=== PATIENT | female | born 1960 | race Caucasian/White ===

== ENCOUNTER → 2024-01-06 15:23 | Outpatient (REF) | payer MEDICARE, OTHER, SELFPAY | LOC: WDC 15:23 | PROVIDERS: ATTENDING PHYSICIAN Obstetrics & Gynecology; FAMILY PHYSICIAN Family Medicine | DX: Z12.31 Encounter for screening mammogram for malignant neoplasm of breast (principal) | CPT/HCPCS: 77063; 77067 ==

== ENCOUNTER → 2025-01-06 14:48 | Outpatient (REF) | payer OTHER, SELFPAY | LOC: WDC 14:48 | PROVIDERS: ATTENDING PHYSICIAN Obstetrics & Gynecology; FAMILY PHYSICIAN Family Medicine | DX: Z12.31 Encounter for screening mammogram for malignant neoplasm of breast (principal) | CPT/HCPCS: 77063; 77067 ==

== ENCOUNTER 2025-04-12 22:33 | Emergency (ER) | payer OTHER, SELFPAY ==
[2025-04-12 22:34] VITALS: BP 194/109
[2025-04-12 23:07] LABS: % Basophils 0.8 % (0-2); % Immature Granulocytes 0.5 % (0-0.5); % Lymphocytes 24.6 % (20.5-51.1); % Monocytes 8.3 % (1.7-9.3); % Neutrophils 63.8 % (42.2-75.2); Absolute Basophils 0.1 10^3/uL (0-0.2); Absolute Eosinophils 0.2 10^3/uL (0-0.7); Absolute Lymphocytes 2.1 10^3/uL (1.2-3.4); Absolute Monocytes 0.7 10^3/uL (0.1-0.6); Absolute Neutrophils 5.6 10^3/uL (1.4-6.5); Hematocrit 43.1 % (37.0-47.0); Mean Corp Hgb Conc. 34.8 g/dL (33.0-37.0); Mean Corpuscular Hgb 31.4 pg (27.0-31.0); Mean Corpuscular Volume 90.2 fL (81.0-99.0); Mean Platelet Volume 9.8 fL (7.4-10.4); Nucleated Red Blood Cells % 0 %; Platelet Count 229 10^3/uL (130-400); Red Blood Cell Count 4.78 10^6/uL (4.20-5.40); Red Cell Dist. Width 12.9 % (11.5-14.5); White Blood Cell Count 8.7 10^3/uL (4.8-10.8)
[2025-04-12 23:29] LABS: ALT (SGPT) 25 U/L (0-35); AST (SGOT) 22 U/L (14-36); Albumin 4.6 g/dl (3.5-5.0); Alkaline Phosphatase 114 U/L (38-126); Blood Urea Nitrogen 18 mg/dl (7-17); Calcium 11.4 mg/dl (8.4-10.2); Carbon Dioxide 24 mmol/L (22-30); Chloride 107 mmol/L (98-107); Glucose 139 mg/dl (70-99); Potassium 3.8 mmol/L (3.5-5.1); Sodium 139 mmol/L (135-145); Total Bilirubin 0.8 mg/dl (0.2-1.3); Total Protein 7.7 g/dl (6.3-8.2); eGFR > 60.00
[2025-04-13 00:34] VITALS: BP 154/79
[2025-04-13 00:36] VITALS: BP 154/79
[2025-04-13 00:37] VITALS: BMI 42.7
[2025-04-13 01:00] VITALS: BP 149/78
--- NOTE | 2025-04-13 01:21 | ED.GENMED ---
History of Present Illness
General
Chief Complaint: Dizziness
Source: patient
Exam Limitations: none
Time Seen by Provider: 04/13/25 01:21
Nursing documentation reviewed up to this point in time: agreed with
History of Present Illness
History of Present Illness:
This is a 65-year-old female with past medical history of PE on Xarelto, hypertension, hyperlipidemia, diabetes, who presents emergency department today with concerns of dizziness. Patient reports that she was going to the bathroom and when she
stood up from the toilet, she got a 30 second episode of a room spinning sensation and dizziness. Paitient reports that she will occasionally feel a bit 'woozy' when abruptly looking to her right. She not lose consciousness. She not fall or hit her
head. Patient reports that she went to go sit down again and felt better. Patient reports that she was asymptomatic for multiple hours when she went to go get out of her car earlier today and was helping a neighbor move something when she got the 30
ely second episode of the room spinning sensation again. Patient states that this has been ongoing on and off for a few months now but feels like the past day it got worse. Currently, she is asymptomatic. She denies any headaches. She denies any
nausea or vomiting. She denies any palpitations. She denies any recent chiropractic manipulations. She denies any head or neck trauma.
Past History
Past History
ED Past Medical History: HTN, Hypercholesterolemia and Other (Allergic rhinitis, obesity, hyperparathyroid, pulmonary embolism)
ED Past Surgical History: Appendectomy, Cholecystectomy, Gynecological (Hysterectomy) and Other (Breast lumpectomy)
Social History
Tobacco: Non-smoker
Alcohol: None
Drug: None
Personal: Other (Noncontributory)
Living: alone
Employment: Employed
Family History
Family History: Hypertension
Review of Systems
Review of Systems
All Other Systems: ROS reviewed and negative except as documented in HPI and ROS
Phy Exam
Physical Exam
Physical Exam:
General: Patient is well appearing and in no acute distress; non-toxic
Skin: Warm and dry, no rashes or lesions
Head: Normocephalic, atraumatic
Eyes: Sclera non-icteric. EOMs intact.
Cardiac: Regular rate and rhythm, no murmurs
Peripheral Vascular: No lower extremity swelling or edema
Pulm: Normal respiratory effort, no wheezes, rales, or rhonchi
Neuro: CN II-XII intact, no focal neurologic deficits. Normal steady gait, patient walking comfortably with no symptoms. Normal finger to nose, heel to angeles testing. Negative Romberg.
Psychiatric: Appropriate mood and affect.
Course
Orders/Labs/Results
Orders:
Orders
04/12/25 22:41
Electrocardiogram (*1) Urgent
Reason for Study: Vertigo / Dizzy
EKG- Treatment ONCE
04/12/25 22:58
Complete Blood Count/With Diff Urgent
Comprehensive Metabolic Panel Urgent
04/13/25 02:04
CT Head W/o Iv Contrast Urgent
Comment:
Reason For Exam: transient dizziness, eliquis
0.9% Sodium Chloride 500 ml [Nss] 500 ml IV BOLUS
04/13/25 03:40
Orthostatic VS- Treatment ONCE
Meclizine [Antivert] 25 mg PO NOW STA
Abnormal Lab Results
04/12/25
22:58
MCH 31.4 H pg
(27.0-31.0)
Absolute Monos (auto) 0.7 H 10^3/uL
(0.1-0.6)
BUN 18 H mg/dl
(7-17)
Glucose 139 H mg/dl
(70-99)
Calcium 11.4 H mg/dl
(8.4-10.2)
04/12/25 22:58
04/12/25 22:58
Vital Signs
Initial and Last Documented VS:
Initial Vital Signs
Temp Pulse Resp BP Pulse Ox
97.6 F 81 20 194/109 96
04/12/25 22:34 04/12/25 22:34 04/12/25 22:34 04/12/25 22:34 04/12/25 22:34
Last Documented Vital Signs
Temp Pulse Resp BP Pulse Ox
97.6 F 78 18 178/83 99
04/12/25 22:34 04/13/25 04:46 04/13/25 04:46 04/13/25 04:46 04/13/25 04:46
MDM/Problems Addressed
Differential Diagnosis Includes:
ddx include vestibular neuritis, vestibular migraine, BPPV, orthostatic hypotension, posterior CVA, dysrhythmia/cardiac insuffiency
MDM/Problems Addressed:
This is a 65-year-old female with past medical history of PE on Xarelto, hypertension, hyperlipidemia, diabetes, who presents emergency department today with concerns of dizziness. She had this problem for multiple months on and off but feels like
it has gotten worse the past day. She had 2 episodes of dizziness/room spinning sensation lasting 30 seconds. Currently she is asymptomatic---she did have one additional episode in the emergency department when she was sitting up from a supine
position from CT scan. She denies dysarthria, dysphagia, double vision, headaches neck pain. She denies CP, sOB. Her neurologic exam is completely benign---no focal deficits, normal gait, normal finger to nose, heel to angeles. ECG shows no
dysrhythmia. Blood work unremarkable. Not orthostatic. Patient given IV fluids. Patient given antivert. Did replicate abrupt position changes after patient was given anti-vert and she did not become symptomatic again. Suspect component of BPPV.
Prescription for antivert given. Patient has a follow up appointment coming up with her iron piler and pcp. Did stress to patient to let them know she has been having these symptoms. Patient expressed understanding.All questions answered.
Patient stable for discharge.
*Critical Care Note
Total Time (30-74mins, 75-104mins- exclusive of procedures): Not Applicable
ED Attending Note
-
Portions of this chart may have been created with voice recognition software.� Occasional wrong word or��sound alike� substitutions may have occurred due to the inherent limitations of voice recognition software.
Discharge Plan
Departure
Patient Disposition: Home (Routine Discharge)
Date of Disposition: 04/13/25
Time of Disposition: 04:20
Patient with high blood pressure during this ER visit?: Yes
Condition: Good
Discharge Problem:
Dizziness
Instructions: Vertigo (a Type of Dizziness) (DC), BLOOD PRESSURE
Prescriptions:
New
meclizine 25 mg tablet
25 mg PO TID PRN (Reason: dizziness) Qty: 10 0RF
No Action
cetirizine 10 MG tablet
10 mg PO QPM Qty: 0 0RF
simvastatin 20 MG tablet
20 mg PO HS
beclomethasone dipropionate [Qvar] 8.7 GM aerosol
2 puff IH PRN PRN (Reason: SOB/respiratory irritation )
albuterol sulfate 1 PUFF HFA aerosol inhaler
2 puff inhalation R Q4HPRN PRN (Reason: SOB/respiratory irritation )
fluticasone propionate 1 SPRAY spray,suspension
2 spray intranasal PRN PRN (Reason: congestion)
rivaroxaban [Xarelto] 20 MG tablet
20 mg PO QPM Qty: 30 0RF
Tylenol :
1 dose PO PRN PRN (Reason: pain)
cholecalciferol (vitamin D3) 2,000 UNITS tablet
3,000 units PO DAILY
omeprazole 20 MG tablet,delayed release (DR/EC)
20 mg PO DAILY Qty: 30 0RF
losartan 50 MG tablet
50 mg PO DAILY
metformin 500 MG tablet
500 mg PO BID
glimepiride 4 MG tablet
4 mg PO DAILY
Patient Comments:
TAKE WITH BREAKFAST
hydrochlorothiazide 12.5 MG capsule
12.5 mg PO DAILY
zinc 50 MG tablet
50 mg PO DAILY
Referrals:
Neville Pitts MD [Family Provider] -
Activity Restrictions/Additional Instructions:
Follow-up with your iron piler and your store coordinator. Please call your primary care provider to bump up your follow-up appointment please say that you are seen in the emergency department.
Your CT scan of the head did not show any evidence of acute bleeding or any other abnormalities.
Your EKG showed normal sinus rhythm with no abnormal heart rhythms..
PLEASE RETURN TO THE EMERGENCY DEPARTMENT SHOULD YOU DEVELOP CHEST PAIN, SHORTNESS OF BREATH, WEAKNESS IN ONE-SIDED BODY VERSUS OTHER, DIFFICULTY SPEAKING, CONFUSION, LETHARGY, DIFFICULTY WALKING, TROUBLE SWALLOWING, DIFFICULTY SPEAKING, PERSISTENT
DIZZINESS, INTRACTABLE NAUSEA OR VOMITING, HEADACHES, NECK PAIN, OR ANY OTHER SIGNS OR SYMPTOMS WORRISOME TO YOU.
Interventions
Interventions:
*Risk Screen - Suicide Last Done: 04/12/25 22:40
*General Assessment Last Done: 04/12/25 22:40
*Neglect/Abuse Screening Last Done: 04/12/25 22:40
*ED- Fall Risk Assessment Last Done: 04/13/25 04:51
*ED COVID-19 Vaccine History Last Done: 04/12/25 22:40
*Nursing Disposition Last Done: 04/13/25 04:51
ED- Neurological Assessment Last Done: 04/13/25 00:50
ED- Cardiac Assessment Last Done: 04/13/25 05:26
ED Swallowing Screen Last Done: 04/13/25 02:43
Discharge Date and Time
Discharge Date/Time: 04/13/25 05:26
Print Language: LITHUANIAN
[2025-04-13 02:00] VITALS: BP 146/87
[2025-04-13] MEDS: NSS 500 IV (02:41)
[2025-04-13 03:40] VITALS: BP 157/63; BP 165/80; BP 170/81; PULSE 70; PULSE 73; PULSE 74
[2025-04-13] MEDS: ANTIVERT 25 MG PO (03:48)
[2025-04-13 04:46] VITALS: BP 178/83
== END 2025-04-13 05:26 | disposition home or self-care (01) ==
LOC: EMR 22:33
PROVIDERS: EMERGENCY PHYSICIAN Student in an Organized Health Care Education/Training Program; FAMILY PHYSICIAN Family Medicine
DX: R42 Dizziness and giddiness (principal); I10 Essential (primary) hypertension; E78.00 Pure hypercholesterolemia, unspecified; E66.9 Obesity, unspecified; E11.9 Type 2 diabetes mellitus without complications; Z79.01 Long term (current) use of anticoagulants; Z82.49 Family history of ischemic heart disease and other diseases of the circulatory system; Z86.711 Personal history of pulmonary embolism; Z90.49 Acquired absence of other specified parts of digestive tract; Z90.710 Acquired absence of both cervix and uterus
CPT/HCPCS: 99283; 96360; 70450; 80053; 85025; 93005

== ENCOUNTER 2025-05-27 14:25 | Emergency (ER) | payer OTHER, SELFPAY ==
[2025-05-27 14:26] VITALS: BP 158/82
--- NOTE | 2025-05-27 15:50 | ED.GENMED ---
History of Present Illness
General
Chief Complaint: Skin Surface Trauma
Time Seen by Provider: 05/27/25 15:05
History of Present Illness
History of Present Illness:
65-year-old female with history of varicose veins on Xarelto presenting to the emergency department with bleeding from the left lower extremity. Just prior to arrival she walked out of someone's house and noticed that her leg was bleeding. The
wound was bandaged and she was brought in by the medics. Denies any significant pain to the area. Reports that this happened to her in the past denies fever, numbness or tingling to the extremity, weakness, or additional acute medical complaints
Past History
Past History
ED Past Medical History: HTN, Hypercholesterolemia and Other (Allergic rhinitis, obesity, hyperparathyroid, pulmonary embolism)
ED Past Surgical History: Appendectomy, Cholecystectomy, Gynecological (Hysterectomy) and Other (Breast lumpectomy)
Social History
Tobacco: Non-smoker
Alcohol: None
Drug: None
Personal: Other (Noncontributory)
Living: alone
Employment: Employed
Family History
Family History: Hypertension
Phy Exam
Physical Exam
Physical Exam:
General: Well-appearing, no clinical signs of dehydration, nontoxic and in no acute distress
HEENT: protecting airway
Neck: appears supple
CV: Normal heart rate
Resp: No accessory muscle use, no increased work of breathing
Abd: no distension
Extremities: No deformities, no swelling. Small superficial nonbleeding wound to the left angeles at the medial aspect. No erythema
Neuro: alert, no focal neurologic deficit
: deferred
Rectal: deferred
Psych: Normal affect
Skin: Intact
Course
Vital Signs
Initial and Last Documented VS:
Initial Vital Signs
Temp Pulse Resp BP Pulse Ox
98.8 F 85 16 158/82 96
05/27/25 14:26 05/27/25 14:26 05/27/25 14:26 05/27/25 14:26 05/27/25 14:26
Last Documented Vital Signs
Temp Pulse Resp BP Pulse Ox
98.8 F 85 16 158/82 96
05/27/25 14:26 05/27/25 14:26 05/27/25 14:26 05/27/25 14:26 05/27/25 15:50
MDM/Problems Addressed
MDM/Problems Addressed:
65-year-old female with history of varicose veins on Xarelto presenting for bleeding wound to the left lower angeles. Vital signs are significant for mild hypertension.
On exam patient is resting comfortably, no acute distress. Wound undressed and examined. No active bleeding. No signs of infection. Area of concern was appropriately bandaged and cleaned. Compressive bandage applied. Feel stable for discharge.
No other additional concerns, hemodynamic stable. Return precautions discussed and patient verbalized understanding
*Pulse Oximetry
SaO2: 96
Oxygen Mode of Delivery: Room air
Patient hypoxic: no
*Critical Care Note
Total Time (30-74mins, 75-104mins- exclusive of procedures): Not Applicable
ED Attending Note
-
Portions of this chart may have been created with voice recognition software.� Occasional wrong word or��sound alike� substitutions may have occurred due to the inherent limitations of voice recognition software.
Discharge Plan
Departure
Patient Disposition: Home (Routine Discharge)
Date of Disposition: 05/27/25
Time of Disposition: 15:50
Patient with high blood pressure during this ER visit?: Yes
Condition: Good
Discharge Problem:
Skin tear of left lower leg without complication
Instructions: Wound Care (DC)
Prescriptions:
No Action
cetirizine 10 MG tablet
10 mg PO QPM Qty: 0 0RF
simvastatin 20 MG tablet
20 mg PO HS
beclomethasone dipropionate [Qvar] 8.7 GM aerosol
2 puff IH PRN PRN (Reason: SOB/respiratory irritation )
albuterol sulfate 1 PUFF HFA aerosol inhaler
2 puff inhalation R Q4HPRN PRN (Reason: SOB/respiratory irritation )
fluticasone propionate 1 SPRAY spray,suspension
2 spray intranasal PRN PRN (Reason: congestion)
rivaroxaban [Xarelto] 20 MG tablet
20 mg PO QPM Qty: 30 0RF
Tylenol :
1 dose PO PRN PRN (Reason: pain)
cholecalciferol (vitamin D3) 2,000 UNITS tablet
3,000 units PO DAILY
omeprazole 20 MG tablet,delayed release (DR/EC)
20 mg PO DAILY Qty: 30 0RF
losartan 50 MG tablet
50 mg PO DAILY
metformin 500 MG tablet
500 mg PO BID
glimepiride 4 MG tablet
4 mg PO DAILY
Patient Comments:
TAKE WITH BREAKFAST
hydrochlorothiazide 12.5 MG capsule
12.5 mg PO DAILY
zinc 50 MG tablet
50 mg PO DAILY
meclizine 25 mg tablet
25 mg PO TID PRN (Reason: dizziness) Qty: 10 0RF
Referrals:
Neville Pitts MD [Family Provider, [facility]]
Activity Restrictions/Additional Instructions:
You were seen in the emergency department for a skin tear from a varicose vein
Bleeding was controlled on arrival and your wound was appropriately managed.
Please follow-up closely with your primary care physician.
Return to the emergency department for any worsening of your symptoms including return of bleeding, or any development of chest pain, difficulty breathing, abdominal pain with persistent vomiting and inability to tolerate food or liquid by mouth
(concern for dehydration), weakness, headache or confusion, fever greater than 100.4, or any additional symptoms that are concerning to you.
Thank you for choosing [facility].
Interventions
Interventions:
*Risk Screen - Suicide Last Done: 05/27/25 14:26
*General Assessment Last Done: 05/27/25 14:26
*Neglect/Abuse Screening Last Done: 05/27/25 14:26
Discharge Date and Time
Print Language: SRI LANKAN
[2025-05-27 16:29] VITALS: BP 139/76
== END 2025-05-27 16:29 | disposition home or self-care (01) ==
LOC: EMR 14:25
PROVIDERS: EMERGENCY PHYSICIAN Student in an Organized Health Care Education/Training Program; FAMILY PHYSICIAN Family Medicine
DX: S81.812A Laceration without foreign body, left lower leg, initial encounter (principal); X58.XXXA Exposure to other specified factors, initial encounter; I10 Essential (primary) hypertension; E78.00 Pure hypercholesterolemia, unspecified; E21.3 Hyperparathyroidism, unspecified; E66.9 Obesity, unspecified; Z79.01 Long term (current) use of anticoagulants; Z82.49 Family history of ischemic heart disease and other diseases of the circulatory system; Z86.711 Personal history of pulmonary embolism; Z90.49 Acquired absence of other specified parts of digestive tract; Z90.710 Acquired absence of both cervix and uterus
CPT/HCPCS: 99282

== ENCOUNTER 2025-10-03 18:01 | Emergency (ER) | payer OTHER, SELFPAY ==
[2025-10-03 18:02] VITALS: BP 110/57
[2025-10-03 19:12] VITALS: BP 108/45
--- NOTE | 2025-10-03 19:16 | ED.GENMED ---
History of Present Illness
General
Chief Complaint: Skin Surface Trauma
Time Seen by Provider: 10/03/25 18:32
History of Present Illness
History of Present Illness:
65-year-old female presents the emergency department for evaluation of bleeding from a varicose vein on the left lower extremity. She is on Xarelto. On arrival bleeding is controlled with a pressure bandage
Past History
Past History
ED Past Medical History: HTN, Hypercholesterolemia and Other (Allergic rhinitis, obesity, hyperparathyroid, pulmonary embolism)
ED Past Surgical History: Appendectomy, Cholecystectomy, Gynecological (Hysterectomy) and Other (Breast lumpectomy)
Social History
Tobacco: Non-smoker
Alcohol: None
Drug: None
Personal: Other (Noncontributory)
Living: alone
Employment: Employed
Family History
Family History: Hypertension
Review of Systems
Review of Systems
Allergies reviewed?: Yes
All Other Systems: ROS reviewed and negative except as documented in HPI and ROS
Phy Exam
Physical Exam
Physical Exam:
GEN: Well appearing, NAD, WDWN
HEENT: Oral mucosa moist, no scleral icterus
Cardiac: Regular rate
Lung: No respiratory distress, no tachypnea
MSK: No gross deformity or injuries
Skin: Good color, no pallor or jaundice, no rashes, profuse nonpulsatile bleeding from a superficial varicosity of the left medial lower leg
Neuro: AO x3, moves all extremities freely
Psych: Calm, cooperative
Course
Vital Signs
Initial and Last Documented VS:
Initial Vital Signs
Pulse Resp BP Pulse Ox
90 18 110/57 99
10/03/25 18:02 10/03/25 18:02 10/03/25 18:02 10/03/25 18:02
Last Documented Vital Signs
Pulse Resp BP Pulse Ox
90 18 108/45 99
10/03/25 18:02 10/03/25 18:02 10/03/25 19:12 10/03/25 19:17
MDM/Problems Addressed
MDM/Problems Addressed:
Bleeding was controlled with direct pressure and lidocaine with epinephrine injection, a single pursestring suture was tied over the wound with good hemostasis.
*Pulse Oximetry
SaO2: 99
Oxygen Mode of Delivery: Room air
Patient hypoxic: no
*Critical Care Note
Total Time (30-74mins, 75-104mins- exclusive of procedures): Not Applicable
ED Attending Note
-
Portions of this chart may have been created with voice recognition software.� Occasional wrong word or��sound alike� substitutions may have occurred due to the inherent limitations of voice recognition software.
Discharge Plan
Departure
Patient Disposition: Home (Routine Discharge)
Date of Disposition: 10/03/25
Time of Disposition: :25
Patient with high blood pressure during this ER visit?: No
Discharge Problem:
Bleeding from varicose vein
Instructions: Wound Care (DC)
Prescriptions:
No Action
cetirizine 10 MG tablet
10 mg PO QPM Qty: 0 0RF
simvastatin 20 MG tablet
20 mg PO HS
beclomethasone dipropionate [Qvar] 8.7 GM aerosol
2 puff IH PRN PRN (Reason: SOB/respiratory irritation )
albuterol sulfate 1 PUFF HFA aerosol inhaler
2 puff inhalation R Q4HPRN PRN (Reason: SOB/respiratory irritation )
fluticasone propionate 1 SPRAY spray,suspension
2 spray intranasal PRN PRN (Reason: congestion)
rivaroxaban [Xarelto] 20 MG tablet
20 mg PO QPM Qty: 30 0RF
Tylenol :
1 dose PO PRN PRN (Reason: pain)
cholecalciferol (vitamin D3) 2,000 UNITS tablet
3,000 units PO DAILY
omeprazole 20 MG tablet,delayed release (DR/EC)
20 mg PO DAILY Qty: 30 0RF
losartan 50 MG tablet
50 mg PO DAILY
metformin 500 MG tablet
500 mg PO BID
glimepiride 4 MG tablet
4 mg PO DAILY
Patient Comments:
TAKE WITH BREAKFAST
hydrochlorothiazide 12.5 MG capsule
12.5 mg PO DAILY
zinc 50 MG tablet
50 mg PO DAILY
meclizine 25 mg tablet
25 mg PO TID PRN (Reason: dizziness) Qty: 10 0RF
Referrals:
Neville Pitts MD [Family Provider, Family Practice]
Activity Restrictions/Additional Instructions:
Keep the dressing on for the next 24 hours then you may begin washing the area gently with soap and water
Wash the wound daily and replace the dressing with the overlying Brandon bandage or compression stockings
I would recommend using the Brandon bandage when traveling to avoid any breakthrough bleeding
Have the suture removed by your primary doctor or urgent care in the next 7 to 10 days
Interventions
Interventions:
*Risk Screen - Suicide Last Done: 10/03/25 18:02
*General Assessment Last Done: 10/03/25 18:02
*Neglect/Abuse Screening Last Done: 10/03/25 18:02
ED-Skin Assessment Last Done: 10/03/25 19:00
Discharge Date and Time
Print Language: BELARUSIAN
== END 2025-10-03 20:13 | disposition home or self-care (01) ==
LOC: EMR 18:01
PROVIDERS: EMERGENCY PHYSICIAN Emergency Medicine; FAMILY PHYSICIAN Family Medicine
DX: I83.892 Varicose veins of left lower extremity with other complications (principal); I10 Essential (primary) hypertension; E78.00 Pure hypercholesterolemia, unspecified; Z86.711 Personal history of pulmonary embolism; Z79.01 Long term (current) use of anticoagulants; Z90.49 Acquired absence of other specified parts of digestive tract; Z90.710 Acquired absence of both cervix and uterus
CPT/HCPCS: 12001; 99282